=== PATIENT | male | born 1985 | race African-American/Black ===

== ENCOUNTER 2017-02-13 12:31 | Emergency (ER) | payer OTHER ==
[~2017-02-13] VITALS: Ht 172.7 cm; Wt 64.0 kg
[2017-02-13 12:38] VITALS: BP 164/77
[2017-02-13] MEDS ORDERED: OLAN2.5T3 PO (12:41)
[2017-02-13] MEDS ORDERED: BACITRACIN ZINC OINT UDPKT TOP ONE (19:15)
== END 2017-02-13 19:19 | disposition home or self-care (01) ==
LOC: ER 12:31
DX: L97.229 Non-pressure chronic ulcer of left calf with unspecified severity (principal); F17.200 Nicotine dependence, unspecified, uncomplicated
CPT/HCPCS: 99283

== ENCOUNTER 2017-03-17 20:41 | Emergency (ER) | payer OTHER ==
[~2017-03-17] VITALS: Ht 177.8 cm; Wt 65.0 kg
[~2017-03-17 20:41] MED LIST: OLAN2.5T3 PO
[2017-03-17 22:06] VITALS: BP 122/69
== END 2017-03-17 23:21 | disposition left against medical advice (07) ==
LOC: ER 20:41
DX: Z53.21 Procedure and treatment not carried out due to patient leaving prior to being seen by health care provider (principal)

== ENCOUNTER 2018-08-19 13:52 | Emergency (ER) | payer OTHER ==
[~2018-08-19] VITALS: Ht 172.7 cm; Wt 68.0 kg
[2018-08-19 14:00] VITALS: BP 131/76
== END 2018-08-19 17:32 | disposition left against medical advice (07) ==
LOC: ER 13:52
DX: R42 Dizziness and giddiness (principal); Z53.21 Procedure and treatment not carried out due to patient leaving prior to being seen by health care provider

== ENCOUNTER 2018-12-05 01:13 | Emergency (ER) | payer OTHER ==
[~2018-12-05] VITALS: Ht 175.3 cm; Wt 73.0 kg
[2018-12-05 01:16] VITALS: BP 119/66
[2018-12-05] MEDS ORDERED: BACITRACIN ZINC OINT UDPKT TOP ONE (02:30)
[2018-12-05] MEDS ORDERED: LIDOCAINE HCL/PF 1% 10 MG/ML 5ML VIAL IJ ONE (02:30)
[2018-12-05] MEDS ORDERED: TETANUS, DIPHTHERIA, PERTUSSIS VAC/PF 0.5ML (>7YR OLD) IM ONE (02:30)
== END 2018-12-05 04:45 | disposition home or self-care (01) ==
LOC: ER 01:13
DX: S61.216A Laceration without foreign body of right little finger without damage to nail, initial encounter (principal); S91.011A Laceration without foreign body, right ankle, initial encounter; R56.9 Unspecified convulsions; W25.XXXA Contact with sharp glass, initial encounter; Y93.89 Activity, other specified; Y92.89 Other specified places as the place of occurrence of the external cause; Y99.8 Other external cause status
CPT/HCPCS: 12002; 73140; 73610; 90471; 90715; 99284; J3490; Z7610

== ENCOUNTER 2021-01-29 12:26 | Emergency (ER) | payer OTHER ==
[~2021-01-29] VITALS: Ht 177.8 cm; Wt 77.0 kg
[2021-01-29 14:51] LABS: BASOPHILS % 0.9 % (0.0-2.0); HEMATOCRIT. 44.9 % (42.0-52.0); HEMOGLOBIN. 15.4 g/dL (14.0-18.0); LYMPHOCYTES % 21.8 % (20.0-50.0); MEAN CORPUSCULAR HEMOGLOBIN 27.8 pg (28.0-32.0); MEAN CORPUSCULAR VOLUME 81.3 fL (80.0-94.0); MEAN PLATELET VOLUME 9.4 fl (7.4-10.4); MONOCYTES % 6.9 % (2.0-8.0); NEUTROPHILS % 68.4 % (40.0-76.0); PLATELET 452 x1000/uL (130-400); RED BLOOD CELL COUNT 5.53 mill/uL (4.7-6.1); RED CELL DISTRIBUTION WIDTH 15.7 % (11.6-14.6)
[2021-01-29 14:58] LABS: CHLORIDE 104 mEq/L (98-107)
[2021-01-29 16:46] VITALS: BP 119/65
== END 2021-01-29 16:43 | disposition home or self-care (01) ==
LOC: ER 12:26
DX: R60.0 Localized edema (principal); R94.5 Abnormal results of liver function studies; G40.909 Epilepsy, unspecified, not intractable, without status epilepticus; F17.210 Nicotine dependence, cigarettes, uncomplicated; Z71.6 Tobacco abuse counseling; Z91.010 Allergy to peanuts
CPT/HCPCS: 36415; 71045; 80053; 83880; 84484; 85025; 85379; 93005; 93923; 93970; 99285; 99406